=== PATIENT | male | born 1945 | race African-American/Black ===

== ENCOUNTER 2018-08-31 17:36 | Emergency (ER) | payer MEDICARE ==
[2018-08-31] MEDS ORDERED: metroNIDAZOLE 250 MG TAB ONE (20:41)
== END 2018-08-31 20:53 | disposition home or self-care (01) ==
LOC: ERS 17:36
DX: A59.9 Trichomoniasis, unspecified (principal); E78.1 Pure hyperglyceridemia; I10 Essential (primary) hypertension; F17.210 Nicotine dependence, cigarettes, uncomplicated; E11.9 Type 2 diabetes mellitus without complications; Z79.899 Other long term (current) drug therapy
CPT/HCPCS: 99285

== ENCOUNTER 2020-07-26 08:02 | Outpatient (CLI) | payer MEDICARE ==
--- NOTE | 2020-07-26 09:40 | CT ---
CT CHEST WITHOUT CONTRAST: TECHNIQUE: Multiple axial tomograms were obtained following low-dose protocol for lung screening. INDICATION: History of nicotine dependency. Long history of smoking. COMPARISON: Comparison is made to low-dose CT 12/31/2016. FINDINGS: There is new patchy parenchymal opacity in the posterior left lung base which could represent focal a telectasis or infiltrate. Neoplasm is felt unlikely; however, recommend clinical correlation and fol lowup. There are chronic lung parenchymal changes again noted. There is interstitial thickening in the norma phery of both lungs. Evidence of centrilobular emphysematous changes is seen bilaterally, more promi nent in the upper lobes. Scattered blebs. Thoracic vertebrae maintain height and alignment with mil d degenerative change. Upper abdomen unremarkable. Old rib deformity involving the posterior 10th rib from old injury is stable. Mediastinum shows nons pecific lymph nodes which appear stable. IMPRESSION: A new parenchymal opacity in the posterior left lung measuring up to 2.8 cm in the axial plane. Foca l atelectasis or infiltrate is suspected. Lung RADS category 4A. Recommend 3-month followup low-dos e chest CT. POS: [facility]
== END 2020-07-26 08:03 | disposition home or self-care (01) ==
LOC: BICCT 08:02
PROVIDERS: ATTEND Family Medicine
DX: Z12.2 Encounter for screening for malignant neoplasm of respiratory organs (principal); J44.9 Chronic obstructive pulmonary disease, unspecified; R91.8 Other nonspecific abnormal finding of lung field; Z87.891 Personal history of nicotine dependence
CPT/HCPCS: G0297

== ENCOUNTER 2023-06-09 07:48 | Outpatient (CLI) | payer OTHER | END 2023-06-09 07:49 | disposition home or self-care (01) | LOC: SCSMRI 07:48 | PROVIDERS: ATTEND Psychiatry & Neurology Neurology | DX: M48.02 Spinal stenosis, cervical region (principal); M50.01 Cervical disc disorder with myelopathy, high cervical region; M50.03 Cervical disc disorder with myelopathy, cervicothoracic region; M25.78 Osteophyte, vertebrae; G95.89 Other specified diseases of spinal cord | CPT/HCPCS: 72156 ==